=== PATIENT | female | born 1995 | race Caucasian/White ===

== ENCOUNTER 2018-05-06 22:32 | Emergency (ER) | payer MEDICAID ==
[~2018-05-06] VITALS: Ht 177.8 cm; Wt 100.6 kg
[2018-05-06 22:34] VITALS: BP 136/87
[2018-05-06] MEDS ORDERED: PREN-3 PO (22:58)
== END 2018-05-06 23:49 | disposition home or self-care (01) ==
LOC: ED 23:05
DX: O9A.213 Injury, poisoning and certain other consequences of external causes complicating pregnancy, third trimester (principal); S76.011A Strain of muscle, fascia and tendon of right hip, initial encounter; Z3A.32 32 weeks gestation of pregnancy; X58.XXXA Exposure to other specified factors, initial encounter; Y93.89 Activity, other specified; Y92.009 Unspecified place in unspecified non-institutional (private) residence as the place of occurrence of the external cause; Y99.8 Other external cause status
CPT/HCPCS: 99282

== ENCOUNTER 2018-06-21 16:40 | Outpatient (CLI) | payer MEDICAID ==
[~2018-06-21] VITALS: Ht 177.8 cm; Wt 107.3 kg
[~2018-06-21 16:40] MED LIST: PREN-3 PO
[2018-06-21 17:12] VITALS: BP 141/88
[2018-06-21 17:22] LABS: BASOPHILS # (AUTO) 0.05 x10^3/uL (0-0.1); BASOPHILS % (AUTO) 0 % (0-1); EOSINOPHILS # (AUTO) 0.03 x10^3/uL (0-0.4); EOSINOPHILS % (AUTO) 0 % (1-7); LYMPHOCYTES # (AUTO) 1.18 x10^3/uL (1-3.4); LYMPHOCYTES % (AUTO) 10 % (22-44); MD NO; MEAN CORPUSCULAR HEMOGLOBIN 26.1 pg (27.0-34.8); MEAN CORPUSCULAR HGB CONC 33.2 g/dL (32.4-35.8); MEAN CORPUSCULAR VOLUME 78.5 fL (80-100); MEAN PLATELET VOLUME 9.6 fL (7.4-10.4); MONOCYTES # (AUTO) 0.79 x10^3/uL (0.2-0.8); MONOCYTES % (AUTO) 7 % (2-9); NEUTROPHILS # (AUTO) 9.34 x10^3/uL (1.8-6.8); NEUTROPHILS % (AUTO) 82 % (42-75); PLATELET COUNT 237 x10^3/uL (130-400); RED BLOOD COUNT 3.93 x10^6/uL (3.82-5.3); RED CELL DISTRIBUTION WIDTH 15.3 % (9.6-15.2)
[2018-06-21] MEDS ORDERED: FAMO-79 PO (17:27)
[2018-06-21 17:28] LABS: ALANINE AMINOTRANSFERASE 15 U/L (12-78); ALBUMIN 2.4 g/dL (3.4-5.0); ANION GAP 9 mmol/L (5-15); BILIRUBIN, DIRECT 0.1 mg/dL (0.1-0.2); CALCIUM 8.3 mg/dL (8.5-10.1); CHLORIDE 112 mmol/L (98-107)
[2018-06-21 17:31] LABS: ALKALINE PHOSPHATASE 168 U/L (45-117); BILIRUBIN,TOTAL 0.4 mg/dL (0.2-1.0); CREATININE 0.72 mg/dL (0.55-1.02); TOTAL PROTEIN 6.5 g/dL (6.4-8.2)
[2018-06-21 17:41] LABS: MICROSCOPIC INDICATED
[2018-06-21] MEDS ORDERED: NITROFURANTOIN (MACROBID) 100 MG CAPSULE PO ONE (18:30)
[2018-06-21] MEDS ORDERED: NITROFURANTOIN (MACROBID) 100 MG CAPSULE ONE (18:39)
[2018-06-21] MEDS ORDERED: NITR100C56 PO (18:45)
== END 2018-06-21 18:59 | disposition home or self-care (01) ==
LOC: LDOP 16:40
PROVIDERS: ATTEND Obstetrics & Gynecology
DX: O16.3 Unspecified maternal hypertension, third trimester (principal); Z3A.38 38 weeks gestation of pregnancy
CPT/HCPCS: 36415; 59025; 80053; 81001; 82248; 82570; 84156; 84550; 85025; 87086; 99211; G0463

== ENCOUNTER 2018-06-26 13:09 | Inpatient (IN) | payer MEDICAID ==
[~2018-06-26] VITALS: Ht 177.8 cm; Wt 108.0 kg
[~2018-06-26 13:09] MED LIST changes: +FAMO-79 PO; +NITR100C56 PO
[2018-06-26] MEDS ORDERED: OXYTOCIN 30U/ 0.9% NaCL 500ML 500 ML IV ONE (13:11)
[2018-06-26] MEDS ORDERED: OXYTOCIN 30U/ 0.9% NaCL 500ML 500 ML IV PRN ×2 (13:11→17:00)
[2018-06-26] MEDS ORDERED: ONDANSETRON 2MG/ML, 2ML IVPush PRN (13:30)
[2018-06-26] MEDS ORDERED: MISOPROSTOL 25 MCG TABLET VG PRN (13:30)
[2018-06-26] MEDS ORDERED: CALCIUM CARBONATE 500 MG TAB.CHEW PO PRN (13:30)
[2018-06-26] MEDS ORDERED: ALUMINUM/MAG/SIMETHICONE 30 ML UDC PO PRN (13:30)
[2018-06-26] MEDS ORDERED: SODIUM CITRATE/CITRIC ACID 30 ML UDC PO PRN (13:30)
[2018-06-26] MEDS ORDERED: PLEASE ENTER HEIGHT AND WEIGHT MC SCH (13:30)
[2018-06-26] MEDS ORDERED: OXYTOCIN 30U/ 0.9% NaCL 500ML 500 ML ONE ×2 (13:35→22:39)
[2018-06-26] MEDS ORDERED: MISOPROSTOL 25 MCG TABLET ONE (13:35)
[2018-06-26] MEDS ORDERED: MISOPROSTOL 200 MCG TABLET ONE (13:35)
[2018-06-26] MEDS ORDERED: NEWBORN KIT ONE (13:35)
[2018-06-26] MEDS ORDERED: LIDOCAINE 1%, 50ML ONE (13:35)
[2018-06-26 13:41] LABS: BASOPHILS # (AUTO) 0.04 x10^3/uL (0-0.1); BASOPHILS % (AUTO) 0 % (0-1); EOSINOPHILS # (AUTO) 0.03 x10^3/uL (0-0.4); EOSINOPHILS % (AUTO) 0 % (1-7); LYMPHOCYTES # (AUTO) 1.27 x10^3/uL (1-3.4); LYMPHOCYTES % (AUTO) 11 % (22-44); MD NO; MEAN CORPUSCULAR HEMOGLOBIN 25.9 pg (27.0-34.8); MEAN CORPUSCULAR HGB CONC 32.9 g/dL (32.4-35.8); MEAN CORPUSCULAR VOLUME 78.8 fL (80-100); MEAN PLATELET VOLUME 9.4 fL (7.4-10.4); MONOCYTES # (AUTO) 0.65 x10^3/uL (0.2-0.8); MONOCYTES % (AUTO) 6 % (2-9); NEUTROPHILS # (AUTO) 9.25 x10^3/uL (1.8-6.8); NEUTROPHILS % (AUTO) 82 % (42-75); PLATELET COUNT 247 x10^3/uL (130-400); RED BLOOD COUNT 3.83 x10^6/uL (3.82-5.3); RED CELL DISTRIBUTION WIDTH 15.1 % (9.6-15.2)
[2018-06-26 13:47] LABS: ALANINE AMINOTRANSFERASE 15 U/L (12-78); ALBUMIN 2.4 g/dL (3.4-5.0); ANION GAP 11 mmol/L (5-15); BILIRUBIN, DIRECT 0.1 mg/dL (0.1-0.2); CALCIUM 7.9 mg/dL (8.5-10.1); CHLORIDE 110 mmol/L (98-107); CREATININE 0.81 mg/dL (0.55-1.02)
[2018-06-26 13:49] LABS: ALKALINE PHOSPHATASE 162 U/L (45-117); BILIRUBIN,TOTAL 0.5 mg/dL (0.2-1.0); TOTAL PROTEIN 6.1 g/dL (6.4-8.2)
[2018-06-26] MEDS ORDERED: LACTATED RINGERS 1,000 ML IV SCH (13:52)
[2018-06-26] MEDS ORDERED: D5%-LACTATED RINGERS 1,000 ML IV SCH (13:52)
[2018-06-26 14:17] VITALS: BP 150/96
[2018-06-26 16:13] LABS: MICROSCOPIC INDICATED
[2018-06-26] MEDS ORDERED: FENTANYL PF 100 MCG/2ML ONE ×2 (20:18→22:04)
[2018-06-26] MEDS: FENTANYL PF 100 MCG/2ML IVPush PRN ×2 (20:22→22:05)
[2018-06-26] MEDS ORDERED: ZOLPIDEM 5MG TABLET PO SCH (21:00)
[2018-06-26 21:21] VITALS: BP 136/84
[2018-06-26] MEDS ORDERED: OXYTOCIN 30U/ 0.9% NaCL 500ML 500 ML IV SCH (22:26)
[2018-06-26] MEDS ORDERED: OXYcodone/APAP 5/325MG TABLET PO PRN (22:30)
[2018-06-26] MEDS ORDERED: METOCLOPRAMIDE 5 MG/ML, 2ML IV PRN (22:30)
[2018-06-26] MEDS ORDERED: ACETAMINOPHEN 325 MG TABLET PO PRN (22:30)
[2018-06-26] MEDS ORDERED: DIPH,PERTUSS(ACELL),TET VAC/PF NC IM-VACC PRN (22:30)
[2018-06-26] MEDS ORDERED: ONDANSETRON 2MG/ML, 2ML IV PRN (22:30)
[2018-06-26] MEDS ORDERED: MISOPROSTOL 200 MCG TABLET PR PRN (22:30)
[2018-06-26] MEDS ORDERED: OXYTOCIN 10 UNITS/ML, 1ML IM PRN (22:30)
[2018-06-26] MEDS ORDERED: RHOGAM FROM BLOOD BANK 1 NOTE EA IM/IV ONE (22:30)
[2018-06-26] MEDS ORDERED: IBUPROFEN 600 MG TABLET ONE (22:34)
[2018-06-26] MEDS: IBUPROFEN 800 MG TABLET PO PRN (22:46)
[2018-06-26] MEDS ORDERED: IBUPROFEN 800 MG TABLET ONE (22:46)
[2018-06-26 23:55] VITALS: BP 114/72
[2018-06-26] MEDS: OXYcodone/APAP 5/325MG TABLET PO PRN (23:57)
[2018-06-27] VITALS (12 sets, daily range): BP systolic 119–154; BP diastolic 75–90
[2018-06-27] MEDS ORDERED: morphine SULFATE 10 MG/ML, 1ML ONE ×2 (02:18→02:22)
[2018-06-27] MEDS ORDERED: MORPHINE SULFATE 4 MG/ML, 1ML IVPush ONE (02:30)
[2018-06-27] MEDS ORDERED: morphine SULFATE 10 MG/ML, 1ML IVPush ONE (02:30)
[2018-06-27] MEDS ORDERED: FENTANYL PF 100 MCG/2ML ONE (03:17)
[2018-06-27] MEDS ORDERED: MIDAZOLAM 1 MG/ML, 2ML ONE (03:17)
[2018-06-27 04:02] LABS: MEAN CORPUSCULAR HEMOGLOBIN 25.7 pg (27.0-34.8); MEAN CORPUSCULAR HGB CONC 32.9 g/dL (32.4-35.8); MEAN CORPUSCULAR VOLUME 77.9 fL (80-100); MEAN PLATELET VOLUME 9.6 fL (7.4-10.4); PLATELET COUNT 272 x10^3/uL (130-400); RED BLOOD COUNT 3.07 x10^6/uL (3.82-5.3); RED CELL DISTRIBUTION WIDTH 15.4 % (9.6-15.2)
[2018-06-27 04:22] LABS: BASOPHILS # (AUTO) 0.01 x10^3/uL (0-0.1); BASOPHILS % (AUTO) 0 % (0-1); EOSINOPHILS % (AUTO) 0 % (1-7); LYMPHOCYTES % (AUTO) 4 % (22-44); MD SCAN; MONOCYTES # (AUTO) 0.77 x10^3/uL (0.2-0.8); MONOCYTES % (AUTO) 4 % (2-9); NEUTROPHILS # (AUTO) 20.21 x10^3/uL (1.8-6.8); NEUTROPHILS % (AUTO) 93 % (42-75)
[2018-06-27 04:31] LABS: INTERNATIONAL NORMALIZED RATIO 0.96 (0.93-1.1)
[2018-06-27] MEDS ORDERED: IBUPROFEN 800 MG TABLET ONE ×2 (06:47→14:40)
[2018-06-27] MEDS: IBUPROFEN 800 MG TABLET PO PRN ×2 (06:49→14:41)
[2018-06-27] MEDS ORDERED: DOCUSATE 100 MG CAPSULE ONE (08:11)
[2018-06-27] MEDS: PRENATAL VIT/IRON/FA 1 EACH TABLET PO SCH (08:13)
[2018-06-27] MEDS: DOCUSATE 100 MG CAPSULE PO SCH ×2 (08:17→20:51)
[2018-06-27] MEDS ORDERED: OXYcodone/APAP 5/325MG TABLET ONE ×2 (11:27→14:40)
[2018-06-27] MEDS: OXYcodone/APAP 5/325MG TABLET PO PRN ×2 (11:28→14:41)
[2018-06-27 12:55] LABS: BASOPHILS # (AUTO) 0.05 x10^3/uL (0-0.1); BASOPHILS % (AUTO) 0 % (0-1); EOSINOPHILS % (AUTO) 0 % (1-7); LYMPHOCYTES # (AUTO) 1.92 x10^3/uL (1-3.4); LYMPHOCYTES % (AUTO) 11 % (22-44); MD NO; MEAN CORPUSCULAR HEMOGLOBIN 26.3 pg (27.0-34.8); MEAN CORPUSCULAR HGB CONC 33.1 g/dL (32.4-35.8); MEAN CORPUSCULAR VOLUME 79.4 fL (80-100); MEAN PLATELET VOLUME 9.7 fL (7.4-10.4); MONOCYTES # (AUTO) 1.07 x10^3/uL (0.2-0.8); MONOCYTES % (AUTO) 6 % (2-9); NEUTROPHILS # (AUTO) 14.17 x10^3/uL (1.8-6.8); NEUTROPHILS % (AUTO) 82 % (42-75); PLATELET COUNT 215 x10^3/uL (130-400); RED BLOOD COUNT 2.98 x10^6/uL (3.82-5.3); RED CELL DISTRIBUTION WIDTH 16.1 % (9.6-15.2)
[2018-06-27] MEDS ORDERED: MEASLES,MUMPS&RUBELLA VACC/PF 0.5 ML SQ-VACC ONE ×2 (15:56→16:00)
[2018-06-27] MEDS: FAMOTIDINE 20 MG TABLET PO SCH (20:51)
[2018-06-28] MEDS: IBUPROFEN 800 MG TABLET PO PRN ×3 (01:54→22:44)
[2018-06-28 03:45] VITALS: BP 135/88
[2018-06-28 07:45] VITALS: BP 123/83
[2018-06-28] MEDS: DOCUSATE 100 MG CAPSULE PO SCH ×2 (10:10→22:44)
[2018-06-28] MEDS: PRENATAL VIT/IRON/FA 1 EACH TABLET PO SCH (10:10)
[2018-06-28 13:30] VITALS: BP 135/81
[2018-06-28 18:10] VITALS: BP 128/81
[2018-06-28 20:15] VITALS: BP 135/84
[2018-06-28] MEDS: FAMOTIDINE 20 MG TABLET PO SCH (22:45)
[2018-06-28] MEDS: OXYcodone/APAP 5/325MG TABLET PO PRN (22:50)
[2018-06-29 07:40] VITALS: BP 113/76
[2018-06-29] MEDS: PRENATAL VIT/IRON/FA 1 EACH TABLET PO SCH (08:27)
[2018-06-29] MEDS: DOCUSATE 100 MG CAPSULE PO SCH (08:27)
[2018-06-29] MEDS: IBUPROFEN 800 MG TABLET PO PRN (08:27)
[2018-06-29] MEDS ORDERED: OXYC-302 PO (13:25)
[2018-06-29] MEDS ORDERED: IBUP-1222 PO (13:26)
== END 2018-06-29 16:45 | disposition home or self-care (01) | DRG 775 ==
LOC: LDIP 13:09 → 2NW 23:35 → 2NE 06-27 04:43 → 2NW 06-27 11:00 → 2NE 06-27 11:08 → 2NW 06-27 20:03
PROVIDERS: ADMIT Obstetrics & Gynecology; ATTEND Obstetrics & Gynecology
PROC: 3E0P7VZ Introduction of Hormone into Female Reproductive, Via Natural or Artificial Opening (ICD-10-PCS; principal; 2018-06-27)
PROC: 10E0XZZ Delivery of Products of Conception, External Approach (ICD-10-PCS; 2018-06-27)
PROC: 0UCG7ZZ Extirpation of Matter from Vagina, Via Natural or Artificial Opening (ICD-10-PCS; 2018-06-27)
PROC: 30233N1 Transfusion of Nonautologous Red Blood Cells into Peripheral Vein, Percutaneous Approach (ICD-10-PCS; 2018-06-27)
DX: O11.4 Pre-existing hypertension with pre-eclampsia, complicating childbirth (principal); O71.7 Obstetric hematoma of pelvis; Z37.0 Single live birth; Z3A.39 39 weeks gestation of pregnancy; Z88.8 Allergy status to other drugs, medicaments and biological substances; Z88.2 Allergy status to sulfonamides; O70.1 Second degree perineal laceration during delivery; O99.62 Diseases of the digestive system complicating childbirth; K21.9 Gastro-esophageal reflux disease without esophagitis
CPT/HCPCS: 36415; 80053; 81001; 82248; 82570; 84156; 84550; 85025; 85610; 85730; 86850; 86900; 86923; G0378; J2250; J3010; J2270; J2590; J7120; P9016